=== PATIENT | female | born 1940 | race Hispanic/Latino ===

== ENCOUNTER 2023-04-07 12:41 | Inpatient (IN) | payer MEDICARE ==
[2023-04-07] VITALS (28 sets, daily range): BP systolic 90–117; BP diastolic 43–65; PULSE 79–91; RESP 23–33; TEMP 100.8–102.5; O2SAT 96–100
[~2023-04-07] VITALS: Ht 170.2 cm; Wt 83.5 kg
[~2023-04-07 12:41] MED LIST: BACLOFEN10 MG PO; CILOSTAZOL100 MG PO; FEOSOL325 MG PO; GLIMEPIRIDE2 MG PO; Insulin Detemir SQ; LISINOPRIL2.5 MG PO; LOVASTATIN20 MG PO; METFORMIN HCL500 MG PO; METOPROLOL TART25 MG PO; NAPROXEN250 MG PO; OMEPRAZOLE40 MG PO; SINEMET 25-1001 EACH PEG
[2023-04-07] MEDS ORDERED: Vancomycin IV 1 GM in SODIUM CHLORIDE 0.9% 250ML 250 ML IV ONE (13:00)
[2023-04-07] MEDS ORDERED: SODIUM CHLORIDE 0.9% 1000ML 1,000 ML IV SCH (13:00)
[2023-04-07] MEDS ORDERED: CEFEPIME 2 GM in SODIUM CHLORIDE 0.9% 100 ML IV SCH (13:00)
[2023-04-07] MEDS ORDERED: KETOROLAC TROMETHAMINE 30 MG/ML VIAL IV STA (13:01)
[2023-04-07] MEDS ORDERED: ACETAMINOPHEN 1000 MG/100 ML 100 ML IV ONE (13:13)
[2023-04-07 13:19] LABS: BASOPHILS % 0.2 % (0.0-1.0); HEMATOCRIT 47.7 % (34.2-44.1); HEMOGLOBIN 14.6 g/dL (12.0-16.0); LYMPHOCYTES # (AUTO) 2.6 (1.0-3.2); LYMPHOCYTES % 17.2 % (18.0-39.1); MEAN CORPUSCULAR HEMOGLOBIN 25.7 pg (28-32); MEAN CORPUSCULAR HGB CONC 30.6 g/dL (31-35); MONOCYTES % 6.6 % (4.4-11.3); NEUTROPHILS # (AUTO) 11.5 (2.1-6.9); NEUTROPHILS % 75.6 % (38.7-80.0); PLATELET COUNT 99 x10e3/uL (140-360); RED BLOOD COUNT 5.68 x10e6/uL (3.6-5.1); RED CELL DISTRIBUTION WIDTH 20.3 % (11.7-14.4)
[2023-04-07] MEDS: ACETAMINOPHEN 1000 MG/100 ML IV SCH ×2 (13:19→20:44)
[2023-04-07 13:27] LABS: CLARITY,URINE CLEAR (CLEAR); COLOR,URINE YELLOW (YELLOW); KETONES,URINE NEGATIVE (NEGATIVE); LEUKOCYTE ESTERASE ,URINE TRACE (NEGATIVE); NITRITE,URINE NEGATIVE (NEGATIVE); PROTEIN,URINE DIPSTICK 1+ (NEGATIVE); URINE UROBILINOGEN 0.2 mg/dL (0.2 - 1)
[2023-04-07 13:48] LABS: BACTERIA,URINE FEW /HPF; EPITHELIAL CELLS,URINE FEW /LPF; RBC,URINE 0-5 /HPF (0-5)
[2023-04-07 13:49] LABS: ALANINE AMINOTRANSFERASE 17 IU/L (0-55); ALBUMIN 2.9 g/dL (3.5-5.0); ALBUMIN/GLOBULIN RATIO 0.7 (0.8-2.0); ALKALINE PHOSPHATASE 76 IU/L (40-150); ANION GAP 18.9 mmol/L (8-16); CALCIUM 10.9 mg/dL (8.4-10.2); CARBON DIOXIDE 29 mmol/L (22-29); CHLORIDE 119 mmol/L (98-107); CREATININE, SERUM 2.17 mg/dL (0.57-1.11); GLUCOSE 315 mg/dL (74-118); POTASSIUM 3.9 mmol/L (3.5-5.1)
[2023-04-07 13:51] LABS: BLOOD UREA NITROGEN 134 mg/dL (7-26); SODIUM 163 mmol/L (136-145)
[2023-04-07] MEDS ORDERED: ASPIRIN 300 MG SUPP PR STA (14:16)
[2023-04-07] MEDS ORDERED: LACTATED RINGER'S 1,000 ML INJ ONE (14:30)
[2023-04-07] MEDS ORDERED: ASPIRIN 81 MG CHEW TAB PO ONE (14:30)
[2023-04-07] MEDS ORDERED: DEXTROSE 50% SYRINGE 50 ML IV PRN (15:30)
[2023-04-07] MEDS ORDERED: SODIUM CHLORIDE 0.45% 1,000 ML IV SCH (15:30)
[2023-04-07] MEDS: INSULIN REGULAR, HUMAN 100 UNIT/1 ML SQ SCH ×2 (16:30→20:54)
[2023-04-07] MEDS: CILOSTAZOL 100 MG TAB PEG SCH (17:00)
[2023-04-07] MEDS: CARBIDOPA/LEVODOPA 25/100 TAB PEG SCH ×2 (18:00→20:52)
[2023-04-07 18:11] LABS: ANION GAP 16.9 mmol/L (8-16); CALCIUM 9.8 mg/dL (8.4-10.2); CARBON DIOXIDE 25 mmol/L (22-29); CHLORIDE 124 mmol/L (98-107); CREATININE, SERUM 2.05 mg/dL (0.57-1.11); GLUCOSE 239 mg/dL (74-118); POTASSIUM 3.9 mmol/L (3.5-5.1)
[2023-04-07] MEDS ORDERED: MIDODRINE HCL5 MG PO (18:13)
[2023-04-07] MEDS ORDERED: LACTULOSE20 GM/30 M PEG (18:13)
[2023-04-07] MEDS ORDERED: NAMENDA10 MG PEG (18:13)
[2023-04-07] MEDS ORDERED: AMANTADINE HCL25 GM PEG (18:13)
[2023-04-07] MEDS ORDERED: LIPITOR10 MG PO (18:13)
[2023-04-07] MEDS ORDERED: IPRAT-ALBUT 0.5-3 ML (18:13)
[2023-04-07 18:14] LABS: BLOOD UREA NITROGEN 143 mg/dL (7-26)
[2023-04-07 18:15] LABS: SODIUM 162 mmol/L (136-145)
[2023-04-07] MEDS ORDERED: FOLIC ACID0.4 MG PO (18:19)
[2023-04-07] MEDS: DEXTROSE 5% 1,000 ML IV SCH (20:43)
[2023-04-08] VITALS (115 sets, daily range): BP systolic 32–133; BP diastolic 23–113; PULSE 29–149; RESP 12–30; TEMP 97.2–99.7; O2SAT 84–100
[2023-04-08] MEDS: ACETAMINOPHEN 1000 MG/100 ML IV SCH ×2 (01:00→07:00)
[2023-04-08] MEDS ORDERED: ALBUMIN 25% 25GM 100ML 0.25 GM/ML BTL IV ONE (01:00)
[2023-04-08] MEDS: DEXTROSE 5% 1,000 ML IV SCH ×2 (05:04→16:34)
[2023-04-08] MEDS: VASOPRESSIN 60 UNIT in DEXTROSE 5% 50ML 50 ML IV SCH ×2 (05:30→14:03)
[2023-04-08] MEDS ORDERED: NOREPINEPHRINE 8 MG/D5W 250 ML 250 ML ONE (05:43)
[2023-04-08] MEDS ORDERED: SODIUM CHLORIDE 0.9% 1000ML 500 ML IV ONE (05:45)
[2023-04-08] MEDS: NOREPINEPHRINE 8 MG/D5W 250 ML 250 ML IV SCH ×2 (06:03→16:32)
[2023-04-08 06:34] LABS: BASOPHILS % 0.2 % (0.0-1.0); EOSINOPHILS % 0.1 % (0.0-6.0); LYMPHOCYTES # (AUTO) 2.2 (1.0-3.2); MEAN CORPUSCULAR HEMOGLOBIN 25.4 pg (28-32); MEAN CORPUSCULAR HGB CONC 29.4 g/dL (31-35); MEAN CORPUSCULAR VOLUME 86.2 fL (81-99); MONOCYTES # (AUTO) 0.5 (0.2-0.8); MONOCYTES % 4.3 % (4.4-11.3); NEUTROPHILS # (AUTO) 7.8 (2.1-6.9); RED BLOOD COUNT 4.06 x10e6/uL (3.6-5.1); RED CELL DISTRIBUTION WIDTH 18.8 % (11.7-14.4)
[2023-04-08 06:40] LABS: HEMOGLOBIN 10.3 g/dL (12.0-16.0); PLATELET COUNT 47 x10e3/uL (140-360)
[2023-04-08 07:09] LABS: ANION GAP 16.1 mmol/L (8-16); CALCIUM 9.5 mg/dL (8.4-10.2); CARBON DIOXIDE 25 mmol/L (22-29); CHLORIDE 121 mmol/L (98-107); CREATININE, SERUM 1.93 mg/dL (0.57-1.11); GLUCOSE 180 mg/dL (74-118); POTASSIUM 3.1 mmol/L (3.5-5.1); SODIUM 159 mmol/L (136-145)
[2023-04-08 07:11] LABS: BLOOD UREA NITROGEN 139 mg/dL (7-26)
[2023-04-08] MEDS ORDERED: AMIODARONE HCL 150 MG/100 ML BAG IV ONE (07:15)
[2023-04-08] MEDS ORDERED: AMIODARONE 900MG 500 ML IV SCH (07:25)
[2023-04-08] MEDS: INSULIN REGULAR, HUMAN 100 UNIT/1 ML SQ SCH ×4 (07:30→21:18)
[2023-04-08 08:12] LABS: ABG HCO3 27 mmol/L (22-26); ABG PCO2 40 mmHg (35-45); ABG PH 7.44 (7.35-7.45); ABG PO2 91 mmHg (80-105)
[2023-04-08 08:13] LABS: ABG TCO2 28
[2023-04-08] MEDS ORDERED: POTASSIUM CHLORIDE 20MEQ/100ML 100 ML IV ONE (08:30)
[2023-04-08] MEDS: MEROPENEM 1 GM in SODIUM CHLORIDE 0.9% 100 ML IV SCH ×2 (08:32→20:50)
[2023-04-08] MEDS: CARBIDOPA/LEVODOPA 25/100 TAB PEG SCH ×4 (08:33→20:50)
[2023-04-08 08:43] LABS: CHOL/HDL RATIO 3.1 (3.0-3.6)
[2023-04-08] MEDS: FERROUS SULFATE 325 MG TAB PO SCH (08:53)
[2023-04-08] MEDS: CILOSTAZOL 100 MG TAB PEG SCH ×2 (08:53→18:07)
[2023-04-08] MEDS ORDERED: VANCOMYCIN IV SCH ×2 (09:00→12:00)
[2023-04-08] MEDS ORDERED: DEXTROSE 5% IV SCH ×2 (09:00→12:00)
[2023-04-08] MEDS: DEXTROSE 5% IV SCH (12:35)
[2023-04-08] MEDS: VANCOMYCIN IV SCH (12:35)
[2023-04-08 16:03] LABS: ANION GAP 16.4 mmol/L (8-16); CALCIUM 9.6 mg/dL (8.4-10.2); CREATININE, SERUM 1.59 mg/dL (0.57-1.11); MAGNESIUM 2.6 MG/DL (1.3-2.1); PHOSPHORUS 2.9 MG/DL (2.3-4.7); POTASSIUM 3.4 mmol/L (3.5-5.1)
[2023-04-09] VITALS (85 sets, daily range): BP systolic 72–128; BP diastolic 55–99; PULSE 82–124; RESP 13–25; TEMP 97.1–98.4; O2SAT 99–100
[2023-04-09] MEDS: NOREPINEPHRINE 8 MG/D5W 250 ML 250 ML IV SCH ×2 (00:45→17:29)
[2023-04-09] MEDS: VASOPRESSIN 60 UNIT in DEXTROSE 5% 50ML 50 ML IV SCH (00:49)
[2023-04-09 07:47] LABS: BASOPHILS % 0.1 % (0.0-1.0); EOSINOPHILS % 0.2 % (0.0-6.0); HEMATOCRIT 42.1 % (34.2-44.1); HEMOGLOBIN 12.8 g/dL (12.0-16.0); LYMPHOCYTES # (AUTO) 0.9 (1.0-3.2); LYMPHOCYTES % 7.6 % (18.0-39.1); MEAN CORPUSCULAR HEMOGLOBIN 25.1 pg (28-32); MEAN CORPUSCULAR HGB CONC 30.4 g/dL (31-35); MONOCYTES # (AUTO) 0.8 (0.2-0.8); MONOCYTES % 6.8 % (4.4-11.3); NEUTROPHILS # (AUTO) 10.3 (2.1-6.9); NEUTROPHILS % 84.8 % (38.7-80.0); PLATELET COUNT 46 x10e3/uL (140-360); RED BLOOD COUNT 5.09 x10e6/uL (3.6-5.1); RED CELL DISTRIBUTION WIDTH 18.9 % (11.7-14.4)
[2023-04-09 07:49] LABS: MEAN CORPUSCULAR VOLUME 82.7 fL (81-99)
[2023-04-09] MEDS: INSULIN REGULAR, HUMAN 100 UNIT/1 ML SQ SCH ×4 (07:52→20:50)
[2023-04-09] MEDS: MEROPENEM 1 GM in SODIUM CHLORIDE 0.9% 100 ML IV SCH ×2 (08:07→20:15)
[2023-04-09 08:18] LABS: ALBUMIN 3.1 g/dL (3.5-5.0); ALBUMIN/GLOBULIN RATIO 0.8 (0.8-2.0); ANION GAP 16.3 mmol/L (8-16); CALCIUM 9.7 mg/dL (8.4-10.2); CREATININE, SERUM 1.17 mg/dL (0.57-1.11); POTASSIUM 3.3 mmol/L (3.5-5.1)
[2023-04-09] MEDS: DEXTROSE 5% IV SCH (08:50)
[2023-04-09] MEDS: VANCOMYCIN IV SCH (08:50)
[2023-04-09] MEDS: FERROUS SULFATE 325 MG TAB PO SCH (08:51)
[2023-04-09] MEDS: CILOSTAZOL 100 MG TAB PEG SCH ×2 (08:51→17:05)
[2023-04-09] MEDS: CARBIDOPA/LEVODOPA 25/100 TAB PEG SCH ×4 (08:51→20:15)
[2023-04-09] MEDS ORDERED: ENOXAPARIN SOD INJ 60 MG/0.6 ML SYR SC SCH (09:00)
[2023-04-09] MEDS: AMIODARONE HCL 200 MG TAB PO SCH ×2 (10:23→17:05)
[2023-04-09] MEDS: POTASSIUM CHLORIDE 20MEQ/100ML 100 ML IV SCH ×2 (10:23→10:54)
[2023-04-09] MEDS ORDERED: INSULIN GLARGINE 100 UNITS/ML VIAL SQ ONE (11:00)
[2023-04-09] MEDS: DEXTROSE 5% 1,000 ML IV SCH ×2 (11:45)
[2023-04-09] MEDS: VASOPRESSIN 60 UNIT in DEXTROSE 5% 50ML 57 ML IV SCH (15:12)
[2023-04-09] MEDS: MUPIROCIN 2% OINT 22 GM TUBE TOP SCH (20:53)
[2023-04-10] VITALS (52 sets, daily range): BP systolic 81–159; BP diastolic 48–98; PULSE 81–124; RESP 14–25; TEMP 98.4–98.9; O2SAT 98–100
[2023-04-10] MEDS: METOPROLOL TARTRATE 25 MG TAB PO SCH ×3 (01:34→16:27)
[2023-04-10] MEDS: NOREPINEPHRINE 8 MG/D5W 250 ML 250 ML IV SCH ×2 (04:00→13:49)
[2023-04-10] MEDS: VASOPRESSIN 60 UNIT in DEXTROSE 5% 50ML 57 ML IV SCH ×2 (04:04→18:20)
[2023-04-10 06:36] LABS: BASOPHILS % 0.1 % (0.0-1.0); EOSINOPHILS # (AUTO) 0.1 (0.0-0.4); HEMATOCRIT 35.4 % (34.2-44.1); HEMOGLOBIN 11.2 g/dL (12.0-16.0); LYMPHOCYTES # (AUTO) 0.8 (1.0-3.2); LYMPHOCYTES % 7.7 % (18.0-39.1); MEAN CORPUSCULAR HEMOGLOBIN 25.5 pg (28-32); MEAN CORPUSCULAR HGB CONC 31.6 g/dL (31-35); MEAN CORPUSCULAR VOLUME 80.5 fL (81-99); MONOCYTES # (AUTO) 0.8 (0.2-0.8); MONOCYTES % 7.3 % (4.4-11.3); NEUTROPHILS # (AUTO) 9.1 (2.1-6.9); NEUTROPHILS % 83.3 % (38.7-80.0); PLATELET COUNT 61 x10e3/uL (140-360); RED CELL DISTRIBUTION WIDTH 17.8 % (11.7-14.4)
[2023-04-10 06:56] LABS: ALBUMIN 2.7 g/dL (3.5-5.0); ALBUMIN/GLOBULIN RATIO 0.8 (0.8-2.0); ANION GAP 12.5 mmol/L (8-16); CALCIUM 9.7 mg/dL (8.4-10.2); CREATININE, SERUM 0.77 mg/dL (0.57-1.11); POTASSIUM 3.5 mmol/L (3.5-5.1)
[2023-04-10] MEDS: INSULIN REGULAR, HUMAN 100 UNIT/1 ML SQ SCH ×4 (08:01→20:42)
[2023-04-10] MEDS: MEROPENEM 1 GM in SODIUM CHLORIDE 0.9% 100 ML IV SCH ×2 (08:07→19:30)
[2023-04-10] MEDS: VANCOMYCIN IV SCH (08:53)
[2023-04-10] MEDS: CILOSTAZOL 100 MG TAB PEG SCH ×2 (08:53→16:26)
[2023-04-10] MEDS: DEXTROSE 5% IV SCH (08:53)
[2023-04-10] MEDS: CARBIDOPA/LEVODOPA 25/100 TAB PEG SCH ×4 (08:53→20:23)
[2023-04-10] MEDS: AMIODARONE HCL 200 MG TAB PO SCH ×2 (08:54→16:27)
[2023-04-10] MEDS: FERROUS SULFATE 325 MG TAB PO SCH (08:54)
[2023-04-10] MEDS ORDERED: INSULIN GLARGINE 100 UNITS/ML VIAL SQ SCH (09:00)
[2023-04-10] MEDS ORDERED: SODIUM CHLORIDE 0.45% 1,000 ML IV ONE (09:45)
[2023-04-10] MEDS ORDERED: POTASSIUM CHLORIDE 20 MEQ TAB CR PO ONE (10:30)
[2023-04-10] MEDS: MUPIROCIN 2% OINT 22 GM TUBE TOP SCH ×2 (10:53→20:23)
[2023-04-10] MEDS ORDERED: INSULIN GLARGINE 100 UNITS/ML VIAL SQ ONE (11:30)
[2023-04-10] MEDS: MIDODRINE HCL 5 MG TABLET PO SCH ×2 (12:19→16:26)
[2023-04-10] MEDS ORDERED: FUROSEMIDE INJ 10 MG/ML 2 ML VIAL IV ONE (17:50)
[2023-04-11] VITALS (52 sets, daily range): BP systolic 78–125; BP diastolic 50–88; PULSE 85–115; RESP 15–26; TEMP 98.1–99.9; O2SAT 97–100
[2023-04-11] MEDS: NOREPINEPHRINE 8 MG/D5W 250 ML 250 ML IV SCH ×3 (00:37→18:20)
[2023-04-11] MEDS: VASOPRESSIN 60 UNIT in DEXTROSE 5% 50ML 57 ML IV SCH (05:53)
[2023-04-11 06:48] LABS: BASOPHILS % 0.2 % (0.0-1.0); EOSINOPHILS # (AUTO) 0.1 (0.0-0.4); EOSINOPHILS % 0.8 % (0.0-6.0); HEMATOCRIT 33.5 % (34.2-44.1); HEMOGLOBIN 10.5 g/dL (12.0-16.0); MEAN CORPUSCULAR HEMOGLOBIN 25.1 pg (28-32); MEAN CORPUSCULAR HGB CONC 31.3 g/dL (31-35); MONOCYTES # (AUTO) 0.9 (0.2-0.8); MONOCYTES % 7.1 % (4.4-11.3); NEUTROPHILS # (AUTO) 10.2 (2.1-6.9); NEUTROPHILS % 83.3 % (38.7-80.0); PLATELET COUNT 45 x10e3/uL (140-360); RED BLOOD COUNT 4.19 x10e6/uL (3.6-5.1); RED CELL DISTRIBUTION WIDTH 17.9 % (11.7-14.4)
[2023-04-11 07:39] LABS: ALBUMIN 2.6 g/dL (3.5-5.0); ALBUMIN/GLOBULIN RATIO 0.7 (0.8-2.0); ANION GAP 14.8 mmol/L (8-16); CALCIUM 9.5 mg/dL (8.4-10.2); CREATININE, SERUM 0.75 mg/dL (0.57-1.11); POTASSIUM 3.8 mmol/L (3.5-5.1)
[2023-04-11] MEDS ORDERED: DEXTROSE 50% SYRINGE 50 ML IV PRN (08:00)
[2023-04-11] MEDS ORDERED: SODIUM CHLORIDE 0.9% 100 ML ONE (08:36)
[2023-04-11] MEDS: INSULIN REGULAR, HUMAN 3ML VL 100 UNIT in SODIUM CHLORIDE 0.9% 99 ML IV SCH ×2 (08:56)
[2023-04-11] MEDS: MEROPENEM 1 GM in SODIUM CHLORIDE 0.9% 100 ML IV SCH ×2 (08:59→20:17)
[2023-04-11] MEDS: MIDODRINE HCL 5 MG TABLET PO SCH ×3 (08:59→17:22)
[2023-04-11] MEDS: DEXTROSE 5% IV SCH (09:00)
[2023-04-11] MEDS ORDERED: INSULIN GLARGINE 100 UNITS/ML VIAL SQ SCH (09:00)
[2023-04-11] MEDS: VANCOMYCIN IV SCH (09:00)
[2023-04-11] MEDS: FERROUS SULFATE 325 MG TAB PO SCH (09:32)
[2023-04-11] MEDS: CARBIDOPA/LEVODOPA 25/100 TAB PEG SCH ×4 (09:32→20:17)
[2023-04-11] MEDS: CILOSTAZOL 100 MG TAB PEG SCH ×2 (09:32→17:22)
[2023-04-11] MEDS: METOPROLOL TARTRATE 25 MG TAB PO SCH ×2 (09:32→17:22)
[2023-04-11] MEDS: MUPIROCIN 2% OINT 22 GM TUBE TOP SCH ×2 (09:33→21:21)
[2023-04-11] MEDS: AMIODARONE HCL 200 MG TAB PO SCH ×2 (09:37→17:23)
[2023-04-11] MEDS: DIGOXIN INJ 0.25 MG/ML 2 ML AMP IV SCH ×2 (10:37→13:03)
[2023-04-11] MEDS ORDERED: MAGNESIUM SULF 1GRAM/DEXTROSE 100 ML IV ONE (12:00)
[2023-04-11] MEDS: ACETAMINOPHEN 325 MG TAB PO PRN ×2 (12:59→20:18)
[2023-04-11] MEDS: LORAZEPAM INJ 2 MG/ML VIAL IV PRN (20:17)
[2023-04-12] VITALS (65 sets, daily range): BP systolic 92–122; BP diastolic 61–86; PULSE 87–125; RESP 17–24; TEMP 98–98.9; O2SAT 96–100
[2023-04-12] MEDS: VASOPRESSIN 60 UNIT in DEXTROSE 5% 50ML 57 ML IV SCH ×3 (01:54→20:09)
[2023-04-12] MEDS: NOREPINEPHRINE 8 MG/D5W 250 ML 250 ML IV SCH ×2 (03:25→13:02)
[2023-04-12] MEDS ORDERED: DIGOXIN INJ 0.25 MG/ML 2 ML AMP IV ONE (08:00)
[2023-04-12] MEDS: MIDODRINE HCL 5 MG TABLET PO SCH ×3 (08:35→16:24)
[2023-04-12] MEDS: MEROPENEM 1 GM in SODIUM CHLORIDE 0.9% 100 ML IV SCH ×2 (08:36→20:42)
[2023-04-12] MEDS: DEXTROSE 5% IV SCH (09:00)
[2023-04-12] MEDS: VANCOMYCIN IV SCH (09:00)
[2023-04-12] MEDS: AMIODARONE HCL 200 MG TAB PO SCH ×2 (09:19→16:25)
[2023-04-12] MEDS: FERROUS SULFATE 325 MG TAB PO SCH (09:19)
[2023-04-12] MEDS: CILOSTAZOL 100 MG TAB PEG SCH ×2 (09:19→16:24)
[2023-04-12] MEDS: CARBIDOPA/LEVODOPA 25/100 TAB PEG SCH ×4 (09:19→20:41)
[2023-04-12] MEDS: MUPIROCIN 2% OINT 22 GM TUBE TOP SCH ×2 (09:22→20:41)
[2023-04-12] MEDS: METOPROLOL TARTRATE 25 MG TAB PO SCH ×2 (09:22→16:25)
[2023-04-12 09:41] LABS: ALBUMIN 2.6 g/dL (3.5-5.0); ALBUMIN/GLOBULIN RATIO 0.7 (0.8-2.0); ANION GAP 13.6 mmol/L (8-16); CALCIUM 9.4 mg/dL (8.4-10.2); CREATININE, SERUM 0.65 mg/dL (0.57-1.11); POTASSIUM 3.6 mmol/L (3.5-5.1)
[2023-04-12 10:07] LABS: BASOPHILS % 0.2 % (0.0-1.0); EOSINOPHILS # (AUTO) 0.2 (0.0-0.4); EOSINOPHILS % 1.4 % (0.0-6.0); HEMATOCRIT 32.9 % (34.2-44.1); HEMOGLOBIN 10.2 g/dL (12.0-16.0); LYMPHOCYTES # (AUTO) 1.3 (1.0-3.2); LYMPHOCYTES % 8.5 % (18.0-39.1); MEAN CORPUSCULAR HEMOGLOBIN 25.4 pg (28-32); MEAN CORPUSCULAR VOLUME 81.8 fL (81-99); MONOCYTES # (AUTO) 1.3 (0.2-0.8); MONOCYTES % 8.3 % (4.4-11.3); NEUTROPHILS # (AUTO) 12.1 (2.1-6.9); NEUTROPHILS % 80.8 % (38.7-80.0); PLATELET COUNT 69 x10e3/uL (140-360); RED BLOOD COUNT 4.02 x10e6/uL (3.6-5.1)
[2023-04-12 11:19] LABS: ALBUMIN 2.6 g/dL (3.5-5.0); ALBUMIN/GLOBULIN RATIO 0.8 (0.8-2.0); ANION GAP 14.5 mmol/L (8-16); CALCIUM 8.9 mg/dL (8.4-10.2); CREATININE, SERUM 0.67 mg/dL (0.57-1.11); POTASSIUM 4.5 mmol/L (3.5-5.1)
[2023-04-12] MEDS: ALBUTEROL/IPRATROPIUM 3 ML NEB NEB SCH ×4 (12:12→23:01)
[2023-04-12] MEDS: ACETAMINOPHEN 325 MG TAB PO PRN (19:00)
[2023-04-12] MEDS: LORAZEPAM INJ 2 MG/ML VIAL IV PRN (20:42)
[2023-04-13] VITALS (97 sets, daily range): BP systolic 80–128; BP diastolic 54–82; PULSE 85–103; RESP 14–22; TEMP 98–98.1; O2SAT 96–100
[2023-04-13] MEDS: ALBUTEROL/IPRATROPIUM 3 ML NEB NEB SCH ×6 (02:34→23:00)
[2023-04-13] MEDS: NOREPINEPHRINE 8 MG/D5W 250 ML 250 ML IV SCH ×2 (05:12→18:13)
[2023-04-13 06:25] LABS: HEMATOCRIT 34.1 % (34.2-44.1); HEMOGLOBIN 10.2 g/dL (12.0-16.0); MEAN CORPUSCULAR HEMOGLOBIN 25.4 pg (28-32); MEAN CORPUSCULAR HGB CONC 29.9 g/dL (31-35); MEAN CORPUSCULAR VOLUME 84.8 fL (81-99); PLATELET COUNT 65 x10e3/uL (140-360); RED BLOOD COUNT 4.02 x10e6/uL (3.6-5.1); RED CELL DISTRIBUTION WIDTH 18.4 % (11.7-14.4)
[2023-04-13 06:48] LABS: ALBUMIN 2.5 g/dL (3.5-5.0); ALBUMIN/GLOBULIN RATIO 0.7 (0.8-2.0); ANION GAP 11.6 mmol/L (8-16); CALCIUM 9.5 mg/dL (8.4-10.2); CREATININE, SERUM 0.62 mg/dL (0.57-1.11); MAGNESIUM 1.7 MG/DL (1.3-2.1); PHOSPHORUS 1.5 MG/DL (2.3-4.7); POTASSIUM 3.6 mmol/L (3.5-5.1)
[2023-04-13] MEDS ORDERED: POTASSIUM PHOSPHATE 9 MM in SODIUM CHLORIDE 0.9% 250ML 250 ML IV ONE (08:00)
[2023-04-13] MEDS: CARBIDOPA/LEVODOPA 25/100 TAB PEG SCH ×4 (08:01→20:33)
[2023-04-13] MEDS: MIDODRINE HCL 5 MG TABLET PO SCH ×3 (08:02→16:59)
[2023-04-13] MEDS: CILOSTAZOL 100 MG TAB PEG SCH ×2 (08:02→16:59)
[2023-04-13] MEDS: AMIODARONE HCL 200 MG TAB PO SCH ×2 (08:02→17:00)
[2023-04-13] MEDS: FERROUS SULFATE 325 MG TAB PO SCH (08:02)
[2023-04-13] MEDS: METOPROLOL TARTRATE 25 MG TAB PO SCH ×2 (08:03→17:00)
[2023-04-13] MEDS: MEROPENEM 1 GM in SODIUM CHLORIDE 0.9% 100 ML IV SCH ×2 (08:03→20:33)
[2023-04-13] MEDS: DEXTROSE 5% IV SCH (08:05)
[2023-04-13] MEDS: VANCOMYCIN IV SCH (08:05)
[2023-04-13] MEDS: VASOPRESSIN 60 UNIT in DEXTROSE 5% 50ML 57 ML IV SCH (09:02)
[2023-04-13] MEDS: MUPIROCIN 2% OINT 22 GM TUBE TOP SCH ×2 (09:57→20:33)
[2023-04-13] MEDS ORDERED: MAGNESIUM SULFATE 2GM/50ML 50 ML IV ONE (10:45)
[2023-04-13 13:11] LABS: EOSINOPHILS % (MANUAL) 2 % (0-7); LYMPHOCYTES % (MANUAL) 15 % (19-48); MONOCYTES % (MANUAL) 7 % (3.4-9.0); NEUTROPHILS % (MANUAL) 76 % (40-74)
[2023-04-13 13:12] LABS: ANISOCYTOSIS SLIGHT; PLATELET ESTIMATE SLIGHTLY DECREASED; PLATELET MORPHOLOGY COMMENT NORMAL
[2023-04-13] MEDS: LORAZEPAM INJ 2 MG/ML VIAL IV PRN (20:33)
[2023-04-14] VITALS (69 sets, daily range): BP systolic 79–135; BP diastolic 57–85; PULSE 79–100; RESP 13–23; TEMP 98.1; O2SAT 97–100
[2023-04-14] MEDS: ALBUTEROL/IPRATROPIUM 3 ML NEB NEB SCH ×6 (02:55→23:15)
[2023-04-14 05:57] LABS: BASOPHILS % 0.2 % (0.0-1.0); EOSINOPHILS # (AUTO) 0.1 (0.0-0.4); EOSINOPHILS % 1.2 % (0.0-6.0); HEMATOCRIT 26.9 % (34.2-44.1); HEMOGLOBIN 8.5 g/dL (12.0-16.0); LYMPHOCYTES # (AUTO) 1.7 (1.0-3.2); LYMPHOCYTES % 14.2 % (18.0-39.1); MEAN CORPUSCULAR HEMOGLOBIN 25.6 pg (28-32); MEAN CORPUSCULAR HGB CONC 31.6 g/dL (31-35); MONOCYTES # (AUTO) 0.9 (0.2-0.8); MONOCYTES % 7.3 % (4.4-11.3); NEUTROPHILS # (AUTO) 8.8 (2.1-6.9); NEUTROPHILS % 72.9 % (38.7-80.0); PLATELET COUNT 78 x10e3/uL (140-360); RED BLOOD COUNT 3.32 x10e6/uL (3.6-5.1)
[2023-04-14 06:33] LABS: ALBUMIN 2.3 g/dL (3.5-5.0); ALBUMIN/GLOBULIN RATIO 0.7 (0.8-2.0); ANION GAP 10.4 mmol/L (8-16); CALCIUM 8.9 mg/dL (8.4-10.2); CREATININE, SERUM 0.59 mg/dL (0.57-1.11); POTASSIUM 3.4 mmol/L (3.5-5.1)
[2023-04-14] MEDS ORDERED: POTASSIUM CHLORIDE 20 MEQ TAB CR PO ONE (07:54)
[2023-04-14] MEDS: MEROPENEM 1 GM in SODIUM CHLORIDE 0.9% 100 ML IV SCH ×2 (08:53→19:55)
[2023-04-14] MEDS: MIDODRINE HCL 5 MG TABLET PO SCH ×3 (08:54→15:12)
[2023-04-14] MEDS: FERROUS SULFATE 325 MG TAB PO SCH (08:57)
[2023-04-14 08:58] LABS: MAGNESIUM 1.8 MG/DL (1.3-2.1); PHOSPHORUS 1.8 MG/DL (2.3-4.7)
[2023-04-14] MEDS: MUPIROCIN 2% OINT 22 GM TUBE TOP SCH ×2 (08:58→20:49)
[2023-04-14] MEDS: METOPROLOL TARTRATE 25 MG TAB PO SCH ×2 (08:58→16:10)
[2023-04-14] MEDS: CILOSTAZOL 100 MG TAB PEG SCH ×2 (08:59→16:10)
[2023-04-14] MEDS: AMIODARONE HCL 200 MG TAB PO SCH ×2 (08:59→16:10)
[2023-04-14] MEDS: DEXTROSE 5% IV SCH (09:00)
[2023-04-14] MEDS: VANCOMYCIN IV SCH (09:00)
[2023-04-14] MEDS: CARBIDOPA/LEVODOPA 25/100 TAB PEG SCH ×4 (09:00→20:49)
[2023-04-14] MEDS: NOREPINEPHRINE 8 MG/D5W 250 ML 250 ML IV SCH ×2 (09:16→19:10)
[2023-04-14] MEDS: VASOPRESSIN 60 UNIT in DEXTROSE 5% 50ML 57 ML IV SCH ×2 (09:17→21:53)
[2023-04-14] MEDS ORDERED: SODIUM CHLORIDE 0.9% 250ML 250 ML IV ONE (14:45)
[2023-04-14] MEDS: FLUCONAZOLE 200 MG/100 ML 100 ML IV SCH (16:09)
[2023-04-15] VITALS (115 sets, daily range): BP systolic 75–127; BP diastolic 42–105; PULSE 74–96; RESP 13–27; TEMP 97.7–98.1; O2SAT 97–100
[2023-04-15] MEDS: INSULIN REGULAR, HUMAN 3ML VL 100 UNIT in SODIUM CHLORIDE 0.9% 99 ML IV SCH ×2 (01:17)
[2023-04-15] MEDS: ALBUTEROL/IPRATROPIUM 3 ML NEB NEB SCH ×6 (03:00→23:05)
[2023-04-15] MEDS: NOREPINEPHRINE 8 MG/D5W 250 ML 250 ML IV SCH ×2 (04:29→18:09)
[2023-04-15 06:51] LABS: BASOPHILS % 0.1 % (0.0-1.0); EOSINOPHILS # (AUTO) 0.1 (0.0-0.4); EOSINOPHILS % 0.6 % (0.0-6.0); HEMATOCRIT 24.9 % (34.2-44.1); HEMOGLOBIN 7.9 g/dL (12.0-16.0); LYMPHOCYTES # (AUTO) 1.5 (1.0-3.2); LYMPHOCYTES % 13.6 % (18.0-39.1); MEAN CORPUSCULAR HEMOGLOBIN 25.6 pg (28-32); MEAN CORPUSCULAR HGB CONC 31.7 g/dL (31-35); MEAN CORPUSCULAR VOLUME 80.6 fL (81-99); MONOCYTES # (AUTO) 0.7 (0.2-0.8); MONOCYTES % 6.1 % (4.4-11.3); NEUTROPHILS # (AUTO) 8.3 (2.1-6.9); NEUTROPHILS % 76.5 % (38.7-80.0); RED BLOOD COUNT 3.09 x10e6/uL (3.6-5.1); RED CELL DISTRIBUTION WIDTH 19.6 % (11.7-14.4)
[2023-04-15 06:54] LABS: PLATELET COUNT 84 x10e3/uL (140-360)
[2023-04-15 07:14] LABS: ALBUMIN 2.3 g/dL (3.5-5.0); ALBUMIN/GLOBULIN RATIO 0.8 (0.8-2.0); ANION GAP 11.3 mmol/L (8-16); CALCIUM 8.9 mg/dL (8.4-10.2); CREATININE, SERUM 0.56 mg/dL (0.57-1.11); POTASSIUM 3.3 mmol/L (3.5-5.1)
[2023-04-15] MEDS: VANCOMYCIN IV SCH (08:03)
[2023-04-15] MEDS: DEXTROSE 5% IV SCH (08:03)
[2023-04-15] MEDS: MEROPENEM 1 GM in SODIUM CHLORIDE 0.9% 100 ML IV SCH ×2 (08:05→19:59)
[2023-04-15] MEDS: FERROUS SULFATE 325 MG TAB PO SCH (08:06)
[2023-04-15] MEDS: METOPROLOL TARTRATE 25 MG TAB PO SCH ×2 (08:07→16:00)
[2023-04-15] MEDS: AMIODARONE HCL 200 MG TAB PO SCH ×2 (08:07→16:01)
[2023-04-15] MEDS: CARBIDOPA/LEVODOPA 25/100 TAB PEG SCH ×4 (08:07→19:59)
[2023-04-15] MEDS: MIDODRINE HCL 5 MG TABLET PO SCH ×3 (08:07→15:59)
[2023-04-15] MEDS: CILOSTAZOL 100 MG TAB PEG SCH ×2 (08:07→16:01)
[2023-04-15] MEDS: VASOPRESSIN 60 UNIT in DEXTROSE 5% 50ML 57 ML IV SCH (12:10)
[2023-04-15] MEDS ORDERED: POTASSIUM CHLORIDE 10MEQ/100ML 300 ML IV ONE (13:30)
[2023-04-15] MEDS: FLUCONAZOLE 200 MG/100 ML 100 ML IV SCH (15:59)
[2023-04-15 20:11] LABS: CREATININE,URINE RANDOM 13.24 mg/dL (47-110)
[2023-04-16] VITALS (103 sets, daily range): BP systolic 46–195; BP diastolic 24–181; PULSE 81–116; RESP 14–25; TEMP 97.7; O2SAT 91–100
[2023-04-16] MEDS: ACETAMINOPHEN 325 MG TAB PO PRN (00:31)
[2023-04-16] MEDS: ALBUTEROL/IPRATROPIUM 3 ML NEB NEB SCH ×6 (03:05→23:05)
[2023-04-16] MEDS: VASOPRESSIN 60 UNIT in DEXTROSE 5% 50ML 57 ML IV SCH ×2 (03:32→21:23)
[2023-04-16] MEDS: NOREPINEPHRINE 8 MG/D5W 250 ML 250 ML IV SCH ×4 (03:34→23:02)
[2023-04-16] MEDS: MEROPENEM 1 GM in SODIUM CHLORIDE 0.9% 100 ML IV SCH ×2 (07:53→21:00)
[2023-04-16] MEDS: MIDODRINE HCL 5 MG TABLET PO SCH ×3 (07:53→18:00)
[2023-04-16] MEDS: FERROUS SULFATE 325 MG TAB PO SCH (08:00)
[2023-04-16] MEDS: AMIODARONE HCL 200 MG TAB PO SCH ×2 (08:00→18:00)
[2023-04-16] MEDS: CARBIDOPA/LEVODOPA 25/100 TAB PEG SCH ×4 (08:00→21:00)
[2023-04-16] MEDS: CILOSTAZOL 100 MG TAB PEG SCH ×2 (08:00→18:00)
[2023-04-16] MEDS: DEXTROSE 5% IV SCH (08:01)
[2023-04-16] MEDS: VANCOMYCIN IV SCH (08:01)
[2023-04-16] MEDS: METOPROLOL TARTRATE 25 MG TAB PO SCH ×2 (08:02→18:01)
[2023-04-16] MEDS: LORAZEPAM INJ 2 MG/ML VIAL IV PRN (12:10)
[2023-04-16] MEDS: INSULIN REGULAR, HUMAN 3ML VL 100 UNIT in SODIUM CHLORIDE 0.9% 99 ML IV SCH ×2 (17:59)
[2023-04-16] MEDS: FLUCONAZOLE 200 MG/100 ML 100 ML IV SCH (18:00)
[2023-04-17] VITALS (99 sets, daily range): BP systolic 45–132; BP diastolic 35–103; PULSE 82–99; RESP 14–36; TEMP 97.7–98; O2SAT 97–100
[2023-04-17] MEDS: LORAZEPAM INJ 2 MG/ML VIAL IV PRN ×2 (00:11→06:48)
[2023-04-17] MEDS: ALBUTEROL/IPRATROPIUM 3 ML NEB NEB SCH ×6 (03:15→23:03)
[2023-04-17] MEDS: ACETAMINOPHEN 325 MG TAB PO PRN ×2 (03:24→20:57)
[2023-04-17 06:40] LABS: BASOPHILS % 0.4 % (0.0-1.0); EOSINOPHILS # (AUTO) 0.1 (0.0-0.4); EOSINOPHILS % 0.7 % (0.0-6.0); HEMATOCRIT 24.1 % (34.2-44.1); HEMOGLOBIN 7.7 g/dL (12.0-16.0); LYMPHOCYTES # (AUTO) 1.4 (1.0-3.2); LYMPHOCYTES % 12.7 % (18.0-39.1); MEAN CORPUSCULAR HEMOGLOBIN 25.9 pg (28-32); MEAN CORPUSCULAR VOLUME 81.1 fL (81-99); MONOCYTES # (AUTO) 0.6 (0.2-0.8); NEUTROPHILS # (AUTO) 9.1 (2.1-6.9); NEUTROPHILS % 80.2 % (38.7-80.0); PLATELET COUNT 109 x10e3/uL (140-360); RED BLOOD COUNT 2.97 x10e6/uL (3.6-5.1); RED CELL DISTRIBUTION WIDTH 20.2 % (11.7-14.4)
[2023-04-17 07:07] LABS: ALBUMIN 2.4 g/dL (3.5-5.0); ALBUMIN/GLOBULIN RATIO 0.9 (0.8-2.0); ANION GAP 12.7 mmol/L (8-16); CALCIUM 8.8 mg/dL (8.4-10.2); CREATININE, SERUM 0.51 mg/dL (0.57-1.11); POTASSIUM 3.7 mmol/L (3.5-5.1)
[2023-04-17] MEDS: MIDODRINE HCL 5 MG TABLET PO SCH ×3 (08:59→17:31)
[2023-04-17] MEDS: MEROPENEM 1 GM in SODIUM CHLORIDE 0.9% 100 ML IV SCH ×2 (08:59→20:55)
[2023-04-17] MEDS: CARBIDOPA/LEVODOPA 25/100 TAB PEG SCH ×4 (09:00→20:57)
[2023-04-17] MEDS: FERROUS SULFATE 325 MG TAB PO SCH (09:00)
[2023-04-17] MEDS: AMIODARONE HCL 200 MG TAB PO SCH ×2 (09:00→17:32)
[2023-04-17] MEDS: CILOSTAZOL 100 MG TAB PEG SCH ×2 (09:00→17:31)
[2023-04-17] MEDS: METOPROLOL TARTRATE 25 MG TAB PO SCH ×2 (09:01→17:32)
[2023-04-17] MEDS: Vancomycin IV 1 GM in SODIUM CHLORIDE 0.9% 250ML 250 ML IV SCH (11:56)
[2023-04-17] MEDS: FLUDROCORTISONE ACETATE 0.1 MG TAB PO SCH (13:57)
[2023-04-17] MEDS: HYDROCORTISONE 10 MG TAB PO SCH ×2 (13:57→20:56)
[2023-04-17] MEDS: FLUCONAZOLE 200 MG/100 ML 100 ML IV SCH (17:32)
[2023-04-18] VITALS (95 sets, daily range): BP systolic 73–118; BP diastolic 38–98; PULSE 99–116; RESP 16–44; TEMP 98–98.6; O2SAT 96–100
[2023-04-18] MEDS: ALBUTEROL/IPRATROPIUM 3 ML NEB NEB SCH ×6 (02:25→22:50)
[2023-04-18] MEDS: NOREPINEPHRINE 8 MG/D5W 250 ML 250 ML IV SCH ×4 (04:15→22:41)
[2023-04-18] MEDS: VASOPRESSIN 60 UNIT in DEXTROSE 5% 50ML 57 ML IV SCH ×3 (04:15→22:39)
[2023-04-18 06:25] LABS: BASOPHILS % 0.1 % (0.0-1.0); HEMATOCRIT 25.1 % (34.2-44.1); HEMOGLOBIN 8.1 g/dL (12.0-16.0); LYMPHOCYTES # (AUTO) 0.7 (1.0-3.2); LYMPHOCYTES % 4.5 % (18.0-39.1); MEAN CORPUSCULAR HEMOGLOBIN 25.8 pg (28-32); MEAN CORPUSCULAR HGB CONC 32.3 g/dL (31-35); MEAN CORPUSCULAR VOLUME 79.9 fL (81-99); MONOCYTES # (AUTO) 0.6 (0.2-0.8); MONOCYTES % 3.5 % (4.4-11.3); NEUTROPHILS # (AUTO) 14.6 (2.1-6.9); NEUTROPHILS % 91.1 % (38.7-80.0); PLATELET COUNT 133 x10e3/uL (140-360); RED BLOOD COUNT 3.14 x10e6/uL (3.6-5.1)
[2023-04-18 06:54] LABS: ALBUMIN 2.5 g/dL (3.5-5.0); ALBUMIN/GLOBULIN RATIO 0.7 (0.8-2.0); ANION GAP 14.6 mmol/L (8-16); CALCIUM 8.9 mg/dL (8.4-10.2); CREATININE, SERUM 0.55 mg/dL (0.57-1.11); POTASSIUM 3.6 mmol/L (3.5-5.1)
[2023-04-18] MEDS: METOPROLOL TARTRATE 25 MG TAB PO SCH ×2 (09:00→17:00)
[2023-04-18] MEDS: CARBIDOPA/LEVODOPA 25/100 TAB PEG SCH ×4 (09:07→20:05)
[2023-04-18] MEDS: HYDROCORTISONE 10 MG TAB PO SCH ×2 (09:07→20:05)
[2023-04-18] MEDS: MIDODRINE HCL 5 MG TABLET PO SCH ×3 (09:07→16:52)
[2023-04-18] MEDS: FLUDROCORTISONE ACETATE 0.1 MG TAB PO SCH (09:07)
[2023-04-18] MEDS: CILOSTAZOL 100 MG TAB PEG SCH ×2 (09:07→18:25)
[2023-04-18] MEDS: Vancomycin IV 1 GM in SODIUM CHLORIDE 0.9% 250ML 250 ML IV SCH (09:08)
[2023-04-18] MEDS: AMIODARONE HCL 200 MG TAB PO SCH ×2 (09:09→18:25)
[2023-04-18] MEDS: FERROUS SULFATE 300 MG/5 ML LIQD PEG SCH (13:46)
[2023-04-18] MEDS: FLUCONAZOLE 200 MG/100 ML 100 ML IV SCH (16:52)
[2023-04-18] MEDS ORDERED: LORAZEPAM INJ 2 MG/ML VIAL IV PRN (22:15)
[2023-04-19] VITALS (74 sets, daily range): BP systolic 82–129; BP diastolic 55–99; PULSE 94–121; RESP 13–39; TEMP 98.6–98.9; O2SAT 96–100
[2023-04-19] MEDS: INSULIN REGULAR, HUMAN 3ML VL 100 UNIT in SODIUM CHLORIDE 0.9% 99 ML IV SCH ×2 (00:53)
[2023-04-19] MEDS: ALBUTEROL/IPRATROPIUM 3 ML NEB NEB SCH ×6 (03:20→22:30)
[2023-04-19] MEDS: NOREPINEPHRINE 8 MG/D5W 250 ML 250 ML IV SCH ×3 (04:04→19:42)
[2023-04-19] MEDS: MEROPENEM 1 GM in SODIUM CHLORIDE 0.9% 100 ML IV SCH ×3 (06:08→21:39)
[2023-04-19] MEDS: MIDODRINE HCL 5 MG TABLET PO SCH ×3 (08:32→17:00)
[2023-04-19] MEDS: HYDROCORTISONE 10 MG TAB PO SCH ×2 (08:32→19:41)
[2023-04-19] MEDS: FLUDROCORTISONE ACETATE 0.1 MG TAB PO SCH (08:32)
[2023-04-19] MEDS: METOPROLOL TARTRATE 25 MG TAB PO SCH ×2 (08:32→17:00)
[2023-04-19] MEDS: FERROUS SULFATE 300 MG/5 ML LIQD PEG SCH (08:32)
[2023-04-19] MEDS: CILOSTAZOL 100 MG TAB PEG SCH ×2 (08:32→16:59)
[2023-04-19] MEDS: CARBIDOPA/LEVODOPA 25/100 TAB PEG SCH ×4 (08:33→19:41)
[2023-04-19] MEDS: AMIODARONE HCL 200 MG TAB PO SCH ×2 (08:33→17:00)
[2023-04-19 09:49] LABS: ALBUMIN 2.7 g/dL (3.5-5.0); ALBUMIN/GLOBULIN RATIO 0.8 (0.8-2.0); ANION GAP 13.3 mmol/L (8-16); CALCIUM 9.3 mg/dL (8.4-10.2); CREATININE, SERUM 0.53 mg/dL (0.57-1.11); POTASSIUM 3.3 mmol/L (3.5-5.1)
[2023-04-19] MEDS: Vancomycin IV 1 GM in SODIUM CHLORIDE 0.9% 250ML 250 ML IV SCH (12:05)
[2023-04-19 12:23] LABS: BASOPHILS # (AUTO) 0.1 (0.0-0.1); BASOPHILS % 0.3 % (0.0-1.0); EOSINOPHILS % 0.2 % (0.0-6.0); HEMATOCRIT 26.2 % (34.2-44.1); HEMOGLOBIN 8.4 g/dL (12.0-16.0); LYMPHOCYTES % 5.3 % (18.0-39.1); MEAN CORPUSCULAR HEMOGLOBIN 26.5 pg (28-32); MEAN CORPUSCULAR HGB CONC 32.1 g/dL (31-35); MEAN CORPUSCULAR VOLUME 82.6 fL (81-99); MONOCYTES # (AUTO) 0.9 (0.2-0.8); NEUTROPHILS # (AUTO) 15.9 (2.1-6.9); NEUTROPHILS % 88.4 % (38.7-80.0); PLATELET COUNT 157 x10e3/uL (140-360); RED BLOOD COUNT 3.17 x10e6/uL (3.6-5.1)
[2023-04-19] MEDS: FLUCONAZOLE 200 MG/100 ML 100 ML IV SCH (17:00)
[2023-04-20] VITALS (66 sets, daily range): BP systolic 75–117; BP diastolic 43–84; PULSE 75–110; RESP 16–27; TEMP 98.2–98.9; O2SAT 96–100
[2023-04-20] MEDS: NOREPINEPHRINE 8 MG/D5W 250 ML 250 ML IV SCH (01:34)
[2023-04-20] MEDS: ALBUTEROL/IPRATROPIUM 3 ML NEB NEB SCH ×6 (02:30→22:35)
[2023-04-20] MEDS: MEROPENEM 1 GM in SODIUM CHLORIDE 0.9% 100 ML IV SCH ×3 (05:06→21:52)
[2023-04-20] MEDS: Vancomycin IV 1 GM in SODIUM CHLORIDE 0.9% 250ML 250 ML IV SCH (08:21)
[2023-04-20] MEDS: MIDODRINE HCL 5 MG TABLET PO SCH ×3 (08:21→16:43)
[2023-04-20] MEDS: FERROUS SULFATE 300 MG/5 ML LIQD PEG SCH (08:21)
[2023-04-20] MEDS: CILOSTAZOL 100 MG TAB PEG SCH ×2 (08:21→16:43)
[2023-04-20] MEDS: FLUDROCORTISONE ACETATE 0.1 MG TAB PO SCH (08:21)
[2023-04-20] MEDS: HYDROCORTISONE 10 MG TAB PO SCH ×2 (08:21→19:57)
[2023-04-20] MEDS: CARBIDOPA/LEVODOPA 25/100 TAB PEG SCH ×4 (08:22→19:57)
[2023-04-20] MEDS: METOPROLOL TARTRATE 25 MG TAB PO SCH ×2 (08:22→16:43)
[2023-04-20] MEDS: AMIODARONE HCL 200 MG TAB PO SCH ×2 (08:22→16:43)
[2023-04-20] MEDS: FLUCONAZOLE 200 MG/100 ML 100 ML IV SCH (16:43)
[2023-04-20] MEDS: VASOPRESSIN 60 UNIT in DEXTROSE 5% 50ML 57 ML IV SCH (16:44)
[2023-04-21] VITALS (77 sets, daily range): BP systolic 65–187; BP diastolic 46–160; PULSE 101–123; RESP 14–29; TEMP 98.2–98.7; O2SAT 94–100
[2023-04-21] MEDS: ALBUTEROL/IPRATROPIUM 3 ML NEB NEB SCH ×6 (03:10→23:20)
[2023-04-21] MEDS: NOREPINEPHRINE 8 MG/D5W 250 ML 250 ML IV SCH ×3 (05:01→19:09)
[2023-04-21] MEDS: MEROPENEM 1 GM in SODIUM CHLORIDE 0.9% 100 ML IV SCH ×3 (05:01→23:27)
[2023-04-21] MEDS: VASOPRESSIN 60 UNIT in DEXTROSE 5% 50ML 57 ML IV SCH ×3 (05:06→19:06)
[2023-04-21 06:44] LABS: BASOPHILS % 0.2 % (0.0-1.0); EOSINOPHILS % 0.1 % (0.0-6.0); HEMATOCRIT 23.5 % (34.2-44.1); HEMOGLOBIN 7.4 g/dL (12.0-16.0); LYMPHOCYTES % 6.7 % (18.0-39.1); MEAN CORPUSCULAR HEMOGLOBIN 26.4 pg (28-32); MEAN CORPUSCULAR HGB CONC 31.5 g/dL (31-35); MEAN CORPUSCULAR VOLUME 83.9 fL (81-99); MONOCYTES # (AUTO) 0.8 (0.2-0.8); MONOCYTES % 5.7 % (4.4-11.3); NEUTROPHILS # (AUTO) 12.7 (2.1-6.9); NEUTROPHILS % 86.8 % (38.7-80.0); PLATELET COUNT 167 x10e3/uL (140-360); RED CELL DISTRIBUTION WIDTH 23.9 % (11.7-14.4)
[2023-04-21 07:02] LABS: ALBUMIN 2.5 g/dL (3.5-5.0); ALBUMIN/GLOBULIN RATIO 0.8 (0.8-2.0); ANION GAP 11.9 mmol/L (8-16); CALCIUM 9.1 mg/dL (8.4-10.2); CREATININE, SERUM 0.51 mg/dL (0.57-1.11)
[2023-04-21 07:04] LABS: POTASSIUM 2.9 mmol/L (3.5-5.1)
[2023-04-21] MEDS ORDERED: LEVALBUTEROL HCL SOLN NEBU 0.63 MG/3 ML NEB INH PRN (08:30)
[2023-04-21] MEDS ORDERED: ALBUMIN 25% 25GM 100ML 0.25 GM/ML BTL IV SCH (08:30)
[2023-04-21] MEDS: ALBUMIN 25% 25GM 100ML 100 ML IV SCH ×2 (08:47→15:25)
[2023-04-21] MEDS: MIDODRINE HCL 5 MG TABLET PO SCH ×3 (08:47→15:25)
[2023-04-21] MEDS: POTASSIUM CHLORIDE 20MEQ/100ML 100 ML IV SCH ×4 (08:48→19:45)
[2023-04-21] MEDS: FLUDROCORTISONE ACETATE 0.1 MG TAB PO SCH (08:49)
[2023-04-21] MEDS: CARBIDOPA/LEVODOPA 25/100 TAB PEG SCH ×4 (08:49→21:00)
[2023-04-21] MEDS: AMIODARONE HCL 200 MG TAB PO SCH ×2 (08:49→17:00)
[2023-04-21] MEDS: CILOSTAZOL 100 MG TAB PEG SCH ×2 (08:49→17:00)
[2023-04-21] MEDS: FERROUS SULFATE 300 MG/5 ML LIQD PEG SCH (08:49)
[2023-04-21] MEDS: FLUCONAZOLE 200 MG/100 ML 100 ML IV SCH ×2 (08:50→16:00)
[2023-04-21] MEDS: HYDROCORTISONE 10 MG TAB PO SCH ×2 (08:54→19:42)
[2023-04-21] MEDS: Vancomycin IV 1 GM in SODIUM CHLORIDE 0.9% 250ML 250 ML IV SCH (08:55)
[2023-04-21 09:11] LABS: MAGNESIUM 1.5 MG/DL (1.3-2.1); PHOSPHORUS 1.8 MG/DL (2.3-4.7)
[2023-04-21] MEDS ORDERED: HYDROCODONE/APAP 5MG-325MG TAB PO ONE (14:00)
[2023-04-21] MEDS ORDERED: MAGNESIUM SULFATE 2GM/50ML 50 ML IV ONE (18:00)
[2023-04-21] MEDS: INSULIN REGULAR, HUMAN 3ML VL 100 UNIT in SODIUM CHLORIDE 0.9% 99 ML IV SCH ×2 (19:08)
[2023-04-21] MEDS ORDERED: SODIUM PHOSPHATE IN 0.9 % NACL 15 MMOL in SODIUM CHLORIDE 0.9% 250ML 250 ML IV ONE ×2 (20:00)
[2023-04-21] MEDS ORDERED: POTASSIUM CHLORIDE 20MEQ/100ML 100 ML IV ONE (23:15)
[2023-04-22] VITALS (33 sets, daily range): BP systolic 64–202; BP diastolic 45–189; PULSE 106–129; RESP 19–28; TEMP 98.7; O2SAT 96–100
[2023-04-22] MEDS: ALBUTEROL/IPRATROPIUM 3 ML NEB NEB SCH ×2 (02:55→07:10)
[2023-04-22] MEDS: MEROPENEM 1 GM in SODIUM CHLORIDE 0.9% 100 ML IV SCH (05:27)
[2023-04-22] MEDS: MIDODRINE HCL 5 MG TABLET PO SCH (08:00)
[2023-04-22] MEDS: FERROUS SULFATE 300 MG/5 ML LIQD PEG SCH (08:34)
[2023-04-22] MEDS: CARBIDOPA/LEVODOPA 25/100 TAB PEG SCH (08:34)
[2023-04-22] MEDS: HYDROCORTISONE 10 MG TAB PO SCH (08:34)
[2023-04-22] MEDS: FLUDROCORTISONE ACETATE 0.1 MG TAB PO SCH (08:34)
[2023-04-22] MEDS: NOREPINEPHRINE 8 MG/D5W 250 ML 250 ML IV SCH (08:36)
[2023-04-22] MEDS: CILOSTAZOL 100 MG TAB PEG SCH (08:37)
[2023-04-22] MEDS: AMIODARONE HCL 200 MG TAB PO SCH (08:37)
== END 2023-04-22 11:07 | disposition hospice, inpatient (51) | DRG 871 ==
LOC: ER 12:49 → ERHOLD 14:20 → ICU 15:20
PROVIDERS: ADMIT Internal Medicine; ATTEND Internal Medicine
PROC: 3E03329 Introduction of Other Anti-infective into Peripheral Vein, Percutaneous Approach (ICD-10-PCS; 2023-04-08)
PROC: 02HV33Z Insertion of Infusion Device into Superior Vena Cava, Percutaneous Approach (ICD-10-PCS; 2023-04-08)
PROC: B548ZZA Ultrasonography of Superior Vena Cava, Guidance (ICD-10-PCS; 2023-04-08)
PROC: 3E033XZ Introduction of Vasopressor into Peripheral Vein, Percutaneous Approach (ICD-10-PCS; principal; 2023-04-09)
DX: A41.9 Sepsis, unspecified organism (principal); G93.41 Metabolic encephalopathy; J69.0 Pneumonitis due to inhalation of food and vomit; R65.21 Severe sepsis with septic shock; N17.0 Acute kidney failure with tubular necrosis; I21.A1 Myocardial infarction type 2; E87.0 Hyperosmolality and hypernatremia; E44.0 Moderate protein-calorie malnutrition; B37.0 Candidal stomatitis; E87.1 Hypo-osmolality and hyponatremia; E11.65 Type 2 diabetes mellitus with hyperglycemia; D69.6 Thrombocytopenia, unspecified; G20 Parkinson's disease; F02.80 Dementia in other diseases classified elsewhere, unspecified severity, without behavioral disturbance, psychotic disturbance, mood disturbance, and anxiety; E86.0 Dehydration; Z66 Do not resuscitate; Z51.5 Encounter for palliative care; R13.10 Dysphagia, unspecified; R00.0 Tachycardia, unspecified; E11.40 Type 2 diabetes mellitus with diabetic neuropathy, unspecified; E87.6 Hypokalemia; I12.9 Hypertensive chronic kidney disease with stage 1 through stage 4 chronic kidney disease, or unspecified chronic kidney disease; L89.310 Pressure ulcer of right buttock, unstageable; N20.0 Calculus of kidney; N18.9 Chronic kidney disease, unspecified; E11.22 Type 2 diabetes mellitus with diabetic chronic kidney disease; E11.621 Type 2 diabetes mellitus with foot ulcer; L89.320 Pressure ulcer of left buttock, unstageable; L89.810 Pressure ulcer of head, unstageable; L89.150 Pressure ulcer of sacral region, unstageable; E11.51 Type 2 diabetes mellitus with diabetic peripheral angiopathy without gangrene; E83.39 Other disorders of phosphorus metabolism; E83.42 Hypomagnesemia; I95.9 Hypotension, unspecified; I48.0 Paroxysmal atrial fibrillation; Z68.28 Body mass index [BMI] 28.0-28.9, adult; Z93.1 Gastrostomy status; Z79.899 Other long term (current) drug therapy; Z87.891 Personal history of nicotine dependence; Z91.81 History of falling; Z20.822 Contact with and (suspected) exposure to COVID-19
CPT/HCPCS: 36415; 36569; 36600; 51700; 70450; 71045; 76770; 80048; 80053; 80061; 80202; 81001; 82533; 82550; 82575; 82805; 82948; 83036; 83605; 83735; 83880; 84100; 84132; 84295; 84484; 85007; 85025; 85027; 87040; 87086; 87400; 93005; 93306; 94640; 94799; 96360; 99252; 99285; J0692; J1160; J1450; J1815; J1885; J1940; J2060; J2185; J3475; J3480; J7030; J7050; J7070; P9047